=== PATIENT | male | born 1980 | race Two or more races ===

== ENCOUNTER 2017-08-31 08:10 | Outpatient (CLI) | payer BC ==
[~2017-08-31 08:10] MED LIST: ALPR2TAB7 PO; BENA20TA2 PO; BUPR300T52 PO; DEXT20TA6 PO; PRAV20TA4 PO
== END 2017-08-31 23:59 | disposition home or self-care (01) ==
LOC: RAD 08:10
PROVIDERS: ATTEND Legal Medicine
DX: M25.512 Pain in left shoulder (principal)
CPT/HCPCS: 73030-TC

== ENCOUNTER → 2019-11-15 | Emergency (ER) | payer BC, OTHER ==
[~2019-11-15] VITALS: Ht 177.8 cm; Wt 99.8 kg
[~2019-11-15] MED LIST changes: -BENA20TA2 PO; +BENA20TA9 PO
[2019-11-15 13:05] VITALS: BP 122/91
== END | disposition home or self-care (01) ==
LOC: ER 13:08
DX: J02.9 Acute pharyngitis, unspecified (principal); R05 Cough; I10 Essential (primary) hypertension; E78.00 Pure hypercholesterolemia, unspecified; R00.0 Tachycardia, unspecified; Z79.899 Other long term (current) drug therapy; Z20.828 Contact with and (suspected) exposure to other viral communicable diseases

== ENCOUNTER 2020-03-13 19:48 | Emergency (ER) | payer OTHER ==
[~2020-03-13] VITALS: Ht 177.8 cm; Wt 108.9 kg
[2020-03-13 19:52] VITALS: BP 133/85
--- NOTE | 2020-03-13 20:27 | NUR ---
COVID SWAB COLLECTED AND SENT TO LAB
[2020-03-13] MEDS ORDERED: IV NS 0.9% 500 ML BAG IV ONE (20:30)
--- NOTE | 2020-03-13 21:31 | NUR ---
covid swab collected and sent to lab
== END 2020-03-13 21:34 | disposition home or self-care (01) ==
LOC: ER 19:48
DX: B34.9 Viral infection, unspecified (principal); R50.9 Fever, unspecified; R53.83 Other fatigue; Z20.828 Contact with and (suspected) exposure to other viral communicable diseases; E78.5 Hyperlipidemia, unspecified; I10 Essential (primary) hypertension; F41.9 Anxiety disorder, unspecified; Z79.899 Other long term (current) drug therapy
CPT/HCPCS: 87426; 99283; C9803; U0003; J7040

== ENCOUNTER 2020-05-08 13:30 | Emergency (ER) | payer OTHER ==
[~2020-05-08] VITALS: Ht 177.8 cm; Wt 99.8 kg
--- NOTE | 2020-05-08 14:00 | NUR ---
COVID SWAB SENT
--- NOTE | 2020-05-08 14:33 | NUR ---
COVID NEGATIVE RESULT PER LAB
--- NOTE | 2020-05-08 14:55 | NUR ---
PATIENT RESTING, COVID SWAB FOR PCR AND STREP SWAB SENT TO LAB
--- NOTE | 2020-05-08 16:21 | NUR ---
PATIENT A/OX4, BREATHING EVEN AND UNLABORED, NO SOB NOTED, NEEDS ATTENDED, KEPT COMFORTABLE. Patient discharged to home in stable condition. Written and verbal after care instructions given. Patient verbalizes understanding of instruction.
[2020-05-08 16:22] VITALS: BP 138/92
== END 2020-05-08 16:22 | disposition home or self-care (01) ==
LOC: ER 13:31
DX: B34.9 Viral infection, unspecified (principal); Z20.828 Contact with and (suspected) exposure to other viral communicable diseases; F41.8 Other specified anxiety disorders; Z79.899 Other long term (current) drug therapy; E78.00 Pure hypercholesterolemia, unspecified
CPT/HCPCS: 71045; 87070; 87426; 87880; 99284; C9803 ×2; U0003; 86403-TC